=== PATIENT | male | born 1975 | race Caucasian/White ===

== ENCOUNTER 2020-10-22 14:17 | Emergency (ER) | payer OTHER, SELFPAY ==
[2020-10-22 14:40] VITALS: BP 165/95; PULSE 88; RESP 18; TEMP 36.6; O2SAT 99
--- NOTE | 2020-10-22 16:25 | ED.GENADULT ---
HPI - General Adult General Chief complaint: Back Pain/Injury <Zack Islas PA-C - Last Filed: 10/22/20 16:29> Stated complaint: back pain <Zack Islas PA-C - Last Filed: 10/22/20 16:29> Time Seen by Provider: 10/22/20 15:56 <TORSETN Montano Last Filed: 10/22/20 16:29> Source: patient <Zack Islas PA-C - Last Filed: 10/22/20 16:29> Mode of arrival: ambulatory <Zack Islas PA-C - Last Filed: 10/22/20 16:29> Limitations: no limitations <Zack Islas PA-C - Last Filed: 10/22/20 16:29> History of Present Illness HPI narrative: Patient is a 45-year-old male who presented to emergency department for evaluation of low back pain began last night while lifting his son who weighs roughly 50 pounds patient notes pain onset to the lower back at the region of the SI joint with pain down the leg patient has been rotating ibuprofen and Tylenol with minimal improvement patient notes history of back pain in the past patient is followed by primary care patient presents in no distress patient denies other illness injury or complaints <Zack Islas PA-C - Last Filed: 10/22/20 16:29> Related Data Home medications: Home Medications Medication Instructions Recorded Confirmed testosterone cypionate mg 10/22/20 <Zcak Islas PA-C - Last Filed: 10/22/20 16:29> Allergies/adverse reactions: Allergies Allergy/AdvReac Type Severity Reaction Status Date / Time No Known Allergies Allergy Unknown Verified 10/22/20 16:00 <Zack Islas PA-C - Last Filed: 10/22/20 16:29> Review of Systems Review of Systems: All systems reviewed & are unremarkable except as noted in HPI and below <Zack Islas PA-C - Last Filed: 10/22/20 16:29> [facility] Social History Social History: Social History (Updated 10/22/20 @ 16:27 by Zack Islas PA-C) Smokeless tobacco user: chewing tobacco Gender identity (if verbalized by the patient): Male <TORSTEN Montano Last Filed: 10/22/20 16:29> Exam Narrative: Exam Narrative: GENERAL: Well-appearing, well-nourished, and in no acute distress. HEAD: Normocephalic, atraumatic. EYES: PERRLA and EOMI. ENT: Nares clear, no rhinorrhea or epistaxis. Mucous membranes moist. CHEST: Clear to auscultation. No respiratory distress. No wheezes rales or rhonchi HEART: Regular rate and rhythm. No murmur heard. EXTREMITIES: Normal range of motion. No edema. Lower lumbar tenderness at the region of the left SI joint SKIN: Warm, dry, no rash. NEURO: No focal deficits. Alert and oriented x3. Motor and sensory intact. Cranial nerves II through XII grossly intact. Normal speech and gait PSYCH: Normal mood and affect. <TORSTEN Montano Last Filed: 10/22/20 16:29> Course Course Emergency Course: Patient notes that he will follow with his primary care for further evaluation was offered x-rays but will follow with primary care for imaging and reevaluation will be treated medically and is felt appropriate for outpatient reevaluation at this time <TORSTEN Montano Last Filed: 10/22/20 16:29> Vital Signs Vital signs: Vital Signs Temperature 97.9 F 10/22/20 14:40 Pulse Rate 88 10/22/20 14:40 Respiratory Rate 18 10/22/20 14:40 Blood Pressure 165/95 H 10/22/20 14:40 Pulse Oximetry 99 10/22/20 14:40 Temperature 97.9 F 10/22/20 14:40 Pulse Rate 88 10/22/20 14:40 Respiratory Rate 18 10/22/20 14:40 Blood Pressure 165/95 H 10/22/20 14:40 Pulse Oximetry 99 10/22/20 14:40 <TORSTEN Montano Last Filed: 10/22/20 16:29> Vital Signs Temperature 97.9 F 10/22/20 14:40 Pulse Rate 88 10/22/20 14:40 Respiratory Rate 18 10/22/20 14:40 Blood Pressure 165/95 H 10/22/20 14:40 Pulse Oximetry 99 10/22/20 14:40 Temperature 97.9 F 10/22/20 14:40 Pulse Rate 88 10/22/20 14:40 Respiratory Rate 18 10/22/20 14:40 Blood P
[2020-10-22] MEDS: LIDOCAINE 5% PATCH 1 PATCH TRANSDERM (16:35)
== END 2020-10-22 16:40 | disposition home or self-care (01) ==
PROVIDERS: Emergency Provider General Practice
DX: M54.16 Radiculopathy, lumbar region (principal); F17.220 Nicotine dependence, chewing tobacco, uncomplicated
CPT/HCPCS: 99283; A9270